=== PATIENT | female | born 1965 | race Hispanic/Latino ===

== ENCOUNTER 2016-08-16 09:15 | Emergency (ER) | payer SELFPAY ==
[2016-08-16] MEDS ORDERED: ROBITUSSIN AC PO ONE (18:23)
--- NOTE | 2016-08-16 18:27 | Emergency Department Report ---
ED Chest Pain HPI - General Chief Complaint: Chest Pain Stated Complaint: CHEST PAIN Time Seen by Provider: 08/16/16 18:10 Source: patient Mode of arrival: Ambulatory Limitations: No Limitations - History of Present Illness Initial Comments: This is a 51-year-old female presents to the emergency department by EMS from home with complaint of midsternal and left-sided chest discomfort has been going on since yesterday. It is a constant pain but the intensity appears to wax and wane. It does not radiate. It is associated with a more chronic cough that is mixed dry and productive and has been going on for the past month. The patient says that she has a history of this recurrent cough in the past and the patient says that she got some "small bottle medications that really worked to stop by cough but it was a small amount of medication." She denies any recent travel or sick contacts at home. She is a tobacco smoker but denies any illicit drug use. She took some aspirin for her symptoms today without much relief. She denies any other significant past medical history. She does not have a primary care doctor. Patient last had a negative stress test here at [facility] in September 2015. The patient also complains of some sinus congestion and drainage and says that she has gone through "3 packs of toilet paper" in dealing with this. - Related Data Previous Rx's Medication Instructions Recorded Last Taken Type Famotidine [Pepcid] 20 mg PO BID #60 tablet 10/07/15 Unknown Rx Fluticasone [Flonase] 1 spray NS QDAY #1 bottle 08/16/16 Unknown Rx guaiFENesin/CODEINE [Robitussin AC] 5 ml PO Q6H PRN #100 ml 08/16/16 Unknown Rx Allergies Allergy/AdvReac Type Severity Reaction Status Date / Time Penicillins AdvReac Unknown Verified 09/12/14 14:27 GERTRUDE score - Gertrude Score Age > 65: (0) No Aspirin use within the Past 7 Days: (0) No 3 or more CAD Risk Factors: (0) No 2 or more Angina events in past 24 hrs: (1) Yes Known CAD with more than 50% Stenosis: (0) No Elevated Cardiac Markers: (0) No ST Deviation Greater than 0.5mm: (0) No GERTRUDE Score: 1 ED Review of Systems ROS: Stated complaint: CHEST PAIN Other details as noted in HPI Comment: All other systems reviewed and negative Constitutional: denies: chills, fever Eyes: denies: eye pain, eye discharge, vision change ENT: congestion. denies: ear pain, throat pain Respiratory: cough. denies: orthopnea Cardiovascular: chest pain. denies: edema Gastrointestinal: denies: abdominal pain, nausea, diarrhea Genitourinary: denies: urgency, dysuria, discharge Musculoskeletal: denies: back pain, joint swelling, arthralgia Skin: denies: rash, lesions Neurological: denies: headache, weakness, paresthesias ED Past Medical Hx - Past Medical History Hx Hypertension: Yes Hx Congestive Heart Failure: No Hx Diabetes: No Hx Asthma: No Hx COPD: No Additional medical history: DIVERCULITITS - Surgical History Past Surgical History?: Yes Additional Surgical History: HERNIA REPAIR X 5, colostomy bag from diverticulitis - Social History Smoking Status: Current Every Day Smoker Substance Use Type: Alcohol, Marijuana - Medications Home Medications: Home Medications Medication Instructions Recorded Confirmed Last Taken Type Famotidine [Pepcid] 20 mg PO BID #60 tablet 10/07/15 Unknown Rx Fluticasone [Flonase] 1 spray NS QDAY #1 bottle 08/16/16 Unknown Rx guaiFENesin/CODEINE [Robitussin AC] 5 ml PO Q6H PRN #100 ml 08/16/16 Unknown Rx ED Physical Exam - General Limitations: No Limitations - Other Other exam information: GENERAL: The patient is well-developed well-nourished. HEENT: Normocephalic. Atraumatic. Extraocular motions are intact. Patient has moist mucous membranes. Pupils equal reactive to light bilaterally. NECK: Supple. Trachea is midline. CHEST/LUNGS: Clear to auscultation. There is no respiratory distress noted. Chest pain is reproducible to palpation of chest wall. HEART/CARDIOVASCULAR: Regular. There is no tachycardia. There is no gallop rub or murmur. ABDOMEN: Abdomen is soft, nontender. Patient has normal bowel sounds. There is no abdominal distention. SKIN: There is no rash. There is no edema. There is no diaphoresis. NEURO: The patient is awake, alert, and oriented. The patient is cooperative. The patient has no focal neurologic deficits. The patient has normal speech. MUSCULOSKELETAL: There is no tenderness or deformity. There is no limitation range of motion. There is no evidence of acute injury. ED Course Vital Signs 08/16/16 08/16/16 08/16/16 09:19 09:30 10:00 Temperature Pulse Rate 109 H 125 H 114 H Respiratory 21 32 H 9 L Rate Blood Pressure 122/70 119/69 O2 Sat by Pulse Oximetry 08/16/16 08/16/16 08/16/16 10:30 11:00 11:30 Temperature Pulse Rate 102 H 95 H 121 H Respiratory 14 20 24 Rate Blood Pressure 110/67 111/68 131/81 O2 Sat by Pulse 100 100 100 Oximetry 08/16/16 08/16/16 08/16/16 12:01 12:30 13:00 Temperature Pulse Rate 129 H 114 H Respiratory 13 21 Rate Blood Pressure 161/112 166/82 149/74 O2 Sat by Pulse 73 L 97 99 Oximetry 08/16/16 08/16/16 08/16/16 13:30 14:00 17:45 Temperature 98 F Pulse Rate 101 H 104 H 82 Respiratory 14 14 16 Rate Blood Pressure 152/83 145/84 141/98 O2 Sat by Pulse 98 98 100 Oximetry 08/16/16 08/16/16 08/16/16 19:13 19:30 20:00 Temperature Pulse Rate 79 80 Respiratory 11 L 10 L Rate Blood Pressure 121/77 119/71 113/81 O2 Sat by Pulse 99 Oximetry 08/16/16 08/16/16 08/16/16 20:34 21:00 21:30 Temperature Pulse Rate Respiratory Rate Blood Pressure 119/71 124/82 118/76 O2 Sat by Pulse 99 92 97 Oximetry 08/16/16 22:00 Temperature Pulse Rate Respiratory Rate Blood Pressure 109/73 O2 Sat by Pulse 98 Oximetry ED Medical Decision Making - Lab Data Result diagrams: 08/16/16 18:25 08/16/16 18:18 - EKG Data -: EKG Interpreted by Me EKG shows normal: sinus rhythm, axis, intervals, QRS complexes, ST-T waves Rate: normal - EKG Data When compared to previous EKG there are: previous EKG unavailable Interpretation: normal EKG - Radiology Data Radiology results: report reviewed, image reviewed interpreted by me: Chest x-ray did not show any acute process. Heart is normal shape and size. No effusions. No pneumothorax. No signs of pneumonia seen. CT angiography of the chest does not show any pulmonary embolism. There is ectasia of the ascending thoracic aorta. The thoracic aortic arch and descending thoracic aorta well normal in caliber. No dissection. Lungs are well-expanded. No infiltrates effusions or pneumothorax. - Medical Decision Making 51-year-old female presents to the emergency department after complaining of a productive cough and some chest discomfort. Patient was given some Robitussin- AC and there is been no cough heard during examination or during her ED course. The chest pain is reproducible and appears consistent with costochondritis. EKG did not show any signs of ST elevation [place]. Patient negative troponins 2 the emergency department. Her d-dimer was slightly elevated at equivocal so a CT angiography was done that did not show any PE, dissection, pneumonia or any acute process. Patient had a negative stress test less than one year ago. With all this, the patient appears safe for discharge home. She was given a referral for cardiology K she wants to pursue an outpatient stress test. Otherwise she will return to the ER with any worsening of her symptoms or any acute distress. - Differential Diagnosis NJ, PE, costochondritis, pneumonia, bronchitis Critical Care Time: No Critical care attestation.: If time is entered above; I have spent that time in minutes in the direct care of this critically ill patient, excluding procedure time. ED Disposition Clinical Impression: Bronchitis Chest pain Qualifiers: Chest pain type: unspecified Qualified Code(s): R07.9 - Chest pain, unspecified Disposition: DISCHARGED TO HOME OR SELFCARE Is pt being admited?: No Condition: Stable Instructions: Chest Pain (ED), Acute Bronchitis (ED) Additional Instructions: Please follow-up with your primary care doctor in the next few days. I referral for a local line therapist, Dr. Padron, to follow-up regarding your chest discomfort for a possible outpatient stress test. Return to the emergency department with any worsening of your symptoms or any acute distress. Prescriptions: Fluticasone [Flonase] 1 spray NS QDAY #1 bottle guaiFENesin/CODEINE [Robitussin AC] 5 ml PO Q6H PRN #100 ml PRN Reason: Cough Referrals: PRIMARY CARE, [Primary Care Provider] - 3-5 Days JOSE PADRON MD [Staff Physician] - 3-5 Days Time of Disposition: 22:20
[2016-08-16 19:00] LABS: Basophils % (Auto) 0.8 % (0.0-1.8); Eosinophils % (Auto) 0.8 % (0.0-4.3); Hematocrit 38.5 % (30.3-42.9); Hemoglobin 12.8 gm/dl (10.1-14.3); Mean Corpuscular HGB Conc 33 % (30-34); Mean Corpuscular Hemoglobin 33 pg (28-32); Mean Corpuscular Volume 99 fl (79-97); Platelet Count 148 K/mm3 (140-440); Red Blood Count 3.89 M/mm3 (3.65-5.03); Red Cell Distribution Width 13.5 % (13.2-15.2); White Blood Count 7.6 K/mm3 (4.5-11.0)
[2016-08-16 19:01] LABS: Anion Gap 19 mmol/L; Blood Urea Nitrogen 9 mg/dL (7-17); Calcium 9.7 mg/dL (8.4-10.2); Carbon Dioxide 22 mmol/L (22-30); Chloride 95.7 mmol/L (98-107); Glucose 97 mg/dL (65-100); Potassium 3.8 mmol/L (3.6-5.0); Sodium 133 mmol/L (137-145)
[2016-08-16] MEDS ORDERED: MORPHINE IV ONE (19:59)
--- NOTE | 2016-08-16 20:59 | Cat Scan Report ---
FINAL REPORT PROCEDURE: CT ANGIO CHEST TECHNIQUE: Computerized axial tomographic angiography of the chest and pulmonary arteries was performed after the IV injection of iodinated nonionic contrast. The image data was postprocessed using maximum intensity projection (MIP) and 2-dimensional multiplanar reformatted (MPR) techniques. The examination is specifically tailored to the evaluation of the pulmonary arteries per clinical request. HISTORY: Short of breath 786.09, chest pain 786.50, CP, elevated dimer COMPARISON: No prior studies are available for comparison. FINDINGS: Heart and pericardium: Normal. Thoracic aorta: There is ectasia of the ascending thoracic aorta with maximum dilatation of 5 centimeters. Thoracic aortic arch and descending thoracic aorta are normal in caliber. There is no dissection.. Pulmonary vasculature: Normal. No pulmonary emboli. Lymph nodes: No enlarged thoracic lymph nodes. Lungs: Lungs are well-expanded. There are no infiltrates. Pleural space: No effusion, thickening, or pneumothorax. Musculoskeletal structures: No significant abnormality. Upper abdominal structures: No significant abnormality. IMPRESSION: There is no pulmonary embolism. There is ectasia of the ascending thoracic aorta with maximum dilatation of 5 centimeters. Thoracic aortic arch and descending thoracic aorta are normal in caliber. There is no dissection.. Lungs are well-expanded. There are no infiltrates. There are no effusions or pneumothoraces. .
[2016-08-16 22:29] VITALS: BP 109/73
--- NOTE | 2016-08-17 08:45 | XRay Report ---
PORTABLE CHEST INDICATION: Chest pain. COMPARISON: 10/07/2015 FINDINGS: Portable, frontal chest radiograph demonstrates new mild horizontal left basilar atelectasis. Otherwise clear lungs. Normal cardiomediastinal silhouette. Mild aortic knob calcifications. Stable bones. CONCLUSION: New slight left basilar atelectasis, as described. Thank you for the opportunity to participate in this patient's care.
== END 2016-08-16 23:10 | disposition home or self-care (01) ==
LOC: ED 09:15
DX: J40 Bronchitis, not specified as acute or chronic (principal); R07.9 Chest pain, unspecified; I10 Essential (primary) hypertension; F17.200 Nicotine dependence, unspecified, uncomplicated; F12.10 Cannabis abuse, uncomplicated
CPT/HCPCS: 36415; 71010; 71275; 80048; 83880; 84484; 85025; 85379; 93005; 96374; 99285; J2270; Q9967

== ENCOUNTER 2016-10-04 13:52 | Emergency (ER) | payer SELFPAY ==
[2016-10-04] MEDS ORDERED: TORADOL IM ONE (17:15)
--- NOTE | 2016-10-04 18:34 | Emergency Department Report ---
ED Fall HPI - General Chief Complaint: Fall Stated Complaint: BACK/BUTTOCK PAIN Time Seen by Provider: 10/04/16 17:15 Source: patient Mode of arrival: Ambulatory - History of Present Illness Initial Comments: 51-year-old female comes and states that she tripped and fell last Saturday states she hit the back of her head on a dresser. She complains of headache and lower back pain and sacral pain. Denies vision changes no nausea no vomiting no dizziness. She reports she took Tylenol which helped a little bit. She reports her headache is off and on area and she does report she has a goose said in the back of her head. No past medical history currently takes no medication and she is only allergic to penicillin. MD Complaint: fall When Fall Occurred: # days [employer] (5) Fall Witnessed: no Place Fall Occurred: home - Related Data Previous Rx's Medication Instructions Recorded Last Taken Type Naproxen [Naprosyn TAB] 500 mg PO BID #20 tablet 10/04/16 Unknown Rx Allergies Allergy/AdvReac Type Severity Reaction Status Date / Time Penicillins AdvReac Rash Verified 10/04/16 15:09 ED Review of Systems ROS: Stated complaint: BACK/BUTTOCK PAIN Other details as noted in HPI ED Past Medical Hx - Past Medical History Hx Hypertension: Yes Hx Congestive Heart Failure: No Hx Diabetes: No Hx Asthma: No Hx COPD: No Additional medical history: DIVERCULITITS - Surgical History Additional Surgical History: HERNIA REPAIR X 5, colostomy bag from diverticulitis / REVERSAL. C-SECTIONS X 2. TUBAL LIGATION - Social History Smoking Status: Current Every Day Smoker Substance Use Type: Alcohol - Medications Home Medications: Home Medications Medication Instructions Recorded Confirmed Last Taken Type Naproxen [Naprosyn TAB] 500 mg PO BID #20 tablet 10/04/16 Unknown Rx ED Physical Exam - General Limitations: No Limitations - Eye Eye exam: Present: normal appearance, PERRL, EOMI Pupils: Present: normal accommodation - ENT ENT exam: Present: normal exam, mucous membranes moist - Neck Neck exam: Present: normal inspection - Respiratory Respiratory exam: Present: normal lung sounds bilaterally - Cardiovascular Cardiovascular Exam: Present: regular rate, normal rhythm, normal heart sounds - Back Exam Back exam: Present: normal inspection, full ROM, paraspinal tenderness (sacral) - Expanded Neurological Exam Expanded Speech: Present: fluid speech Cranial nerves: EOM's Intact: Normal, Gag Reflex: Normal, Tongue Deviation: Normal, Nystagmus: Normal Cerebellar function: Finger to Nose: Normal, Heel to Muñoz: Normal, Romberg: Normal Upper motor neuron: Zacarias Neglect: Normal, Pronator Drift: Normal Sensory exam: Upper Extremity Light Touch: Normal, Upper Extremity Pin Prick: Normal, Upper Extremity Temperature: Normal, UE 2 Point Discrimination: Normal, Lower Extremity Light Touch: Normal, Lower Extremity Pin Prick: Normal Motor strength exam: RUE: 4, LUE: 4, RLE: 4, LLE: 4 Best Eye Response ([place]): (4) open spontaneously Best Motor Response ([place]): (6) obeys commands Best Verbal Response ([place]): (5) oriented [place] Total: 15 - Psychiatric Psychiatric exam: Present: normal affect, normal mood - Skin Skin exam: Present: dry, intact, normal color ED Course Vital Signs 10/04/16 15:12 Temperature 97.9 F Pulse Rate 91 H Respiratory 17 Rate Blood Pressure 129/92 O2 Sat by Pulse 100 Oximetry - Reevaluation(s) Reevaluation #1: 10/04/16 18:37 Patient reports she feels much better after having the Toradol injection. ED Medical Decision Making - Medical Decision Making Patient has been evaluated by this provider fast track. Discussed patient that since her fall was on Saturday and she has no neurological deficits that we will not do a head CT. Patient's in a gradients she is more concerned about her lower back and that we can get her out of pain. Discussed the patient and give her Toradol injection 30 mg IM. Discussed patient that I would discharge her on her Naproxen today. Discussed with patient that she needs to follow up with the primary care provider if pain persists or gets worse. Patient verbalized understanding. Critical care attestation.: If time is entered above; I have spent that time in minutes in the direct care of this critically ill patient, excluding procedure time. ED Disposition Clinical Impression: Fall Qualifiers: Encounter type: initial encounter Qualified Code(s): W19.XXXA - Unspecified fall, initial encounter Lumbago Qualifiers: Chronicity: acute Back pain laterality: bilateral Sciatica presence: without sciatica Qualified Code(s): M54.5 - Low back pain Disposition: DISCHARGED TO HOME OR SELFCARE Is pt being admited?: No Does the pt Need Aspirin: No Condition: Stable Instructions: Low Back Strain (ED), Back Pain (ED) Additional Instructions: Follow-up with your primary care provider or emergency room if pain persist or gets worse. Prescriptions: Naproxen [Naprosyn TAB] 500 mg PO BID #20 tablet Referrals: PRIMARY CARE,MD [Primary Care Provider] - 3-5 Days Forms: Work/School Release Form(ED)
[2016-10-04 19:00] VITALS: BP 130/86
== END 2016-10-04 18:59 | disposition home or self-care (01) ==
LOC: ED 13:52
DX: M54.5 Low back pain (principal); I10 Essential (primary) hypertension; F17.200 Nicotine dependence, unspecified, uncomplicated; W19.XXXA Unspecified fall, initial encounter; Y93.9 Activity, unspecified; Y92.9 Unspecified place or not applicable; Y99.9 Unspecified external cause status
CPT/HCPCS: 96372; 99282; J1885

== ENCOUNTER 2018-03-04 18:16 | Emergency (ER) | payer SELFPAY | END 2018-03-04 19:18 | disposition left against medical advice (07) | LOC: ED 18:16 | DX: R52 Pain, unspecified (principal); Z53.21 Procedure and treatment not carried out due to patient leaving prior to being seen by health care provider ==

== ENCOUNTER 2018-03-05 20:18 | Emergency (ER) | payer SELFPAY ==
[2018-03-05 20:48] VITALS: BP 116/67
[2018-03-05] MEDS ORDERED: DELTASONE PO STA (23:52)
[2018-03-05] MEDS ORDERED: NORCO 5/325 PO STA (23:52)
--- NOTE | 2018-03-05 23:55 | Emergency Department Report ---
ED General Adult HPI - General Chief complaint: Extremity Injury, Upper Stated complaint: PAIN Time Seen by Provider: 03/05/18 23:50 Source: patient Mode of arrival: Ambulatory Limitations: No Limitations - Related Data Previous Rx's Medication Instructions Recorded Last Taken Type Naproxen [Naprosyn TAB] 500 mg PO BID #20 tablet 10/04/16 Unknown Rx Allergies Allergy/AdvReac Type Severity Reaction Status Date / Time Penicillins AdvReac Rash Verified 10/04/16 15:09 ED Review of Systems ROS: Stated complaint: PAIN Other details as noted in HPI Constitutional: denies: chills, fever Eyes: denies: eye pain, eye discharge, vision change ENT: denies: ear pain, throat pain Respiratory: denies: cough, shortness of breath, wheezing Cardiovascular: denies: chest pain, palpitations Endocrine: no symptoms reported Gastrointestinal: denies: abdominal pain, nausea, diarrhea Genitourinary: denies: urgency, dysuria, discharge Musculoskeletal: denies: back pain, joint swelling, arthralgia Skin: denies: rash, lesions Neurological: denies: headache, weakness, paresthesias Psychiatric: denies: anxiety, depression Hematological/Lymphatic: denies: easy bleeding, easy bruising ED Past Medical Hx - Past Medical History Hx Hypertension: Yes Hx Congestive Heart Failure: No Hx Diabetes: No Hx Asthma: No Hx COPD: No Additional medical history: DIVERCULITITS - Surgical History Additional Surgical History: HERNIA REPAIR X 5, colostomy bag from diverticulitis / REVERSAL. C-SECTIONS X 2. TUBAL LIGATION - Social History Smoking Status: Current Every Day Smoker Substance Use Type: Alcohol - Medications Home Medications: Home Medications Medication Instructions Recorded Confirmed Last Taken Type Naproxen [Naprosyn TAB] 500 mg PO BID #20 tablet 10/04/16 Unknown Rx ED Physical Exam - General Limitations: No Limitations General appearance: alert, in no apparent distress - Head Head exam: Present: atraumatic, normocephalic - Eye Eye exam: Present: normal appearance, PERRL Pupils: Present: normal accommodation - ENT ENT exam: Present: normal exam, mucous membranes moist - Neck Neck exam: Present: normal inspection - Respiratory Respiratory exam: Present: normal lung sounds bilaterally, rhonchi, chest wall tenderness (right intercostal region, tender with palpation and chest expansion) . Absent: respiratory distress, accessory muscle use, decreased breath sounds - Cardiovascular Cardiovascular Exam: Present: regular rate, normal rhythm. Absent: systolic murmur, diastolic murmur, rubs, gallop - GI/Abdominal GI/Abdominal exam: Present: soft, normal bowel sounds - Extremities Exam Extremities exam: Present: normal inspection - Back Exam Back exam: Present: normal inspection - Neurological Exam Neurological exam: Present: alert, oriented X3 - Psychiatric Psychiatric exam: Present: normal affect, normal mood - Skin Skin exam: Present: warm, dry, intact, normal color. Absent: rash ED Course Vital Signs 03/05/18 20:44 Temperature 97.9 F Pulse Rate 77 Respiratory 20 Rate Blood Pressure 116/67 O2 Sat by Pulse 98 Oximetry Critical care attestation.: If time is entered above; I have spent that time in minutes in the direct care of this critically ill patient, excluding procedure time. ED Disposition Condition: Stable Referrals: PRIMARY CARE, [Primary Care Provider] - 3-5 Days
--- NOTE | 2018-03-06 00:12 | XRay Report ---
FINAL REPORT PROCEDURE: XR CHEST ROUTINE 2V TECHNIQUE: Chest radiograph anteroposterior view. CPT 08983 HISTORY: right chest pain COMPARISON: No prior studies are available for comparison. FINDINGS: Heart: Normal. Mediastinum/Vessels: Normal. Lungs/Pleural space: Normal. Bony thorax: No acute osseous abnormality. Life support devices: None. IMPRESSION: No acute cardiopulmonary abnormality.
== END 2018-03-06 01:20 | disposition home or self-care (01) ==
LOC: ED 20:18
DX: R07.89 Other chest pain (principal); R07.81 Pleurodynia; I10 Essential (primary) hypertension; F17.200 Nicotine dependence, unspecified, uncomplicated; Z98.51 Tubal ligation status; Z88.0 Allergy status to penicillin
CPT/HCPCS: 71046; 99283; J7512